=== PATIENT | female | born 1995 | race Two or more races ===

== ENCOUNTER 2022-06-25 11:56 | Emergency (ER) | payer OTHER ==
[~2022-06-25] VITALS: Ht 160 cm; Wt 54.4 kg
[2022-06-25] MEDS ORDERED: BACTRIM 400-801 EACH PO (15:26)
== END 2022-06-25 15:36 | disposition home or self-care (01) ==
LOC: ER 11:56
DX: S81.011A Laceration without foreign body, right knee, initial encounter (principal); W18.39XA Other fall on same level, initial encounter; Y93.89 Activity, other specified; Y92.89 Other specified places as the place of occurrence of the external cause; Y99.9 Unspecified external cause status

== ENCOUNTER → 2022-07-03 | Emergency (ER) | payer OTHER ==
[~2022-07-03] VITALS: Ht 160 cm; Wt 54.4 kg
[~2022-07-03] MED LIST: BACTRIM 400-801 EACH PO
== END | disposition left against medical advice (07) ==
LOC: ER 15:00
DX: Z53.21 Procedure and treatment not carried out due to patient leaving prior to being seen by health care provider (principal)